=== PATIENT | male | born 2000 ===

== ENCOUNTER 2024-03-13 09:14 | Emergency (ER) | payer SELFPAY ==
[2024-03-13] VITALS (9 sets, daily range): BP systolic 100–144; BP diastolic 50–87; PULSE 96–140; RESP 13–25; TEMP 36.6–38.3; O2SAT 89–99; BMI 26.4
--- NOTE | 2024-03-13 | ECG_ITS ---
Test Reason : dif breathing Blood Pressure : */* mmHG Vent. Rate : 123 BPM Atrial Rate : 123 BPM P-R Int : 130 ms QRS Dur : 84 ms QT Int : 296 ms P-R-T Axes : 75 46 45 degrees QTcB Int : 423 ms Sinus tachycardia Nonspecific T wave abnormality Abnormal ECG No previous ECGs available Referred By: Generic ED Physician Electronically Signed By: JAMES SPRAGUE MD
--- NOTE | ~2024-03-13 | XR_ITS ---
EXAMINATION: XR CHEST CLINICAL INFORMATION: cough, sob COMPARISON: None available. TECHNIQUE: 2 views of the chest were obtained. FINDINGS: No significant abnormality is noted involving the heart, lungs, mediastinum, bony thorax or soft tissues. XR/XR chest 2V IMPRESSION: Unremarkable chest examination. Electronically signed by: Juwan Carter MD 03/13/2024 11:29 AM [facility] [place]
[2024-03-13 11:02] LABS: Basophils Absolute Auto 0.1 X10*3/uL (0.0-0.2); Basophils Percent Auto 0.7 % (0-2); Hematocrit 44.9 % (42.0-52.0); Hemoglobin 15.2 g/dl (14.0-18.0); Imm Gran Abs Auto 0.04 X10*3/uL (0.00-0.03); Imm Gran Pct Auto 0.5 % (0.0-0.4); Lymphocytes Absolute Auto 3.6 X10*3/uL (1.2-4.9); Lymphocytes Percent Auto 40.9 % (20-40); MANUAL DIFF FLAG SCAN; Mean Corpuscular HGB Conc 33.9 g/dl (31.0-36.0); Mean Corpuscular Volume 82.8 fL (80.0-98.0); Mean Platelet Volume 9.5 fL (9.4-12.4); Monocytes Absolute Auto 0.7 X10*3/uL (0.1-1.2); Monocytes Percent Auto 7.9 % (2-11); Neutrophils Absolute Auto 4.4 x10*3/uL (2.0-8.3); Platelet Count 179 X10*3/uL (160-400); Red Blood Count 5.42 X10*6/uL (4.60-5.80); Red Cell Distribution Width 12.7 % (11.0-16.0); SCAN SMEAR FLAG 1; White Blood Count 8.8 X10*3/uL (4.8-10.8)
[2024-03-13 11:05] LABS: Lactic Acid 0.9 mmol/L (0.5-2.0)
[2024-03-13 11:06] LABS: Alanine Aminotransferase 91 U/L (0-40); Albumin Level 4.5 g/dL (3.5-5.0); Alkaline Phosphatase 54 U/L (39-117); Anion Gap 12 (12-20); Aspartate Amino Transferase 46 U/L (5-37); Bilirubin Total 0.5 mg/dL (0.0-1.0); Blood Urea Nitrogen 13 mg/dL (9-16); Calcium 9.6 mg/dL (8.4-10.2); Carbon Dioxide 25 mmol/L (22-29); Chloride 106 mmol/L (96-108); Creatinine Clr Calc Pharmacy 129.8; Estimated Glomerular Filt Rate > 60; Glucose Random 96 mg/dL (60-115); Sodium 139 mmol/L (135-145); Total Protein 8.4 g/dL (6.5-8.0)
--- NOTE | 2024-03-13 11:20 | ED.GENADULT ---
HPI - General Adult General Chief complaint: Upper Respiratory Symptoms Stated complaint: fever nausea cough Time Seen by Provider: 03/13/24 09:53 History of Present Illness HPI narrative: Some patient comes to the ER as he is very short of breath, feels dehydrated has not been able to eat or drink because of nausea and shortness of breath, body aches, fever at home, he has been sick for at least 4 days, but he has been able to go to work but today things got worse especially with his breathing He denies chest pain, he denies diarrhea, no dysuria denies leg swelling denies calf pain denies rash, no abdominal pain no stiff He has a childhood history of asthma but has not had a years, otherwise baseline is healthy Related Data Previous Rx's ?Medication ?Instructions ?Recorded albuterol sulfate 90 mcg/actuation 2 puff inhalation Q4-6H shortness 03/13/24 aerosol inhaler of breath or wheezing #8.5 grams amoxicillin 875 mg-potassium 1 tab PO BID 5 days #10 tabs 03/13/24 clavulanate 125 mg tablet doxycycline hyclate 100 mg tablet 100 mg PO BID 5 days #10 tabs 03/13/24 prednisone 20 mg tablet 60 mg (3 x 20 mg) PO DAILY 5 days 03/13/24 #15 tabs Allergies Allergy/AdvReac Type Severity Reaction Status Date / Time No Known Allergies Allergy Verified 03/13/24 09:46 [facility] Past Medical History Source: nursing notes reviewed Social History Social History Alcohol intake: current Alcohol intake frequency: holidays/special occasions only Smoked in Last 30 Days: No Use of substances other than those prescribed or required for medical reasons: No Advance Directives: No Advance Directives Information Provided: Yes Do you have a plan to hurt others: No Plan Physical Exam ED Vital Signs: Vital Signs - 24 hr 03/13/24 09:42 03/13/24 10:30 03/13/24 10:47 Temperature 100.1 F 100.9 F H Pulse Rate 140 H 110 H Respiratory Rate 22 H 25 H Blood Pressure 144/87 H 120/75 Pulse Oximetry 98 89 L 95 Oxygen Delivery Method Room Air Room Air Nasal Cannula Oxygen Flow Rate 03/13/24 10:50 03/13/24 12:00 03/13/24 12:58 Temperature Pulse Rate 103 H 107 H 114 H Respiratory Rate 18 14 18 Blood Pressure 100/50 L 106/54 L Pulse Oximetry 94 96 Oxygen Delivery Method Nasal Cannula Oxygen Flow Rate 2 03/13/24 13:42 03/13/24 16:25 Temperature Pulse Rate 119 H 100 Respiratory Rate 13 19 Blood Pressure 129/69 Pulse Oximetry 97 Oxygen Delivery Method Room Air Oxygen Flow Rate BMI result Body Mass Index 26.4 Patient was initially febrile tachycardic and with oxygen saturations of 88-90 on room air After neb treatment fluids and antipyretics O2 sat was steady at 97, respiratory rate was 88 and pulse was 100, temp remained at 100.9 after administration of both Motrin and Tylenol General appearance uncomfortable, but able to speak full sentences no respiratory distress The eyes anicteric no pallor no redness no discharge The pharynx is clear without redness swelling or exudate, membranes are moist Neck is supple The chest had some rhonchi, scattered small wheezes and decreased air entry bilaterally Chest wall nontender Heart no murmur Abdomen soft nontender Extremities full range motion x4, no edema no calf tenderness Neuro gait and balance are normal, interaction comprehension and expression are all normal Course Course Course Narrative: Chest x-ray was negative EKG done on arrival showed a sinus tachycardia of a rate of 123, no acute ischemic changes, QRS was 84 QT to 296 CBC was without acute abnormality Chemistries showed AST 46 ALT 91 protein 8.4 Serology was positive for influenza Patient arrived short of breath as his worst complaint, he has had some mild nausea but is not nauseous now and tolerates p.o., he has lots of body aches and feels very fatigued The patient was hydrated given antipyretic and 3 albuterol nebulizer treatments, wheezing was very improved shortness of breath was very improved, pulse was down to 100, oxygen saturation on room air was 97, respiratory rate on departure was 18, speaking full sentences His lung exam there were still scattered wheezes with good air entry, he refused another neb Given the fever and the increased cough with sputum, it might be attributed to reactive airway disease or it could be an early pneumonia not seen on x-ray so he will be treated with antibiotics on discharge, he is out of the window for Tamiflu He was also be treated with an albuterol pump and prednisone for 5 days Patient is discharged improved Medications Administered Discontinued Medications Generic Name Dose Route Start Last Admin Trade Name Freq PRN Reason Stop Dose Admin Acetaminophen 975 mg 03/13/24 14:52 03/13/24 15:05 Acetaminophen 325 Mg Tablet PO 03/13/24 14:53 975 mg ONCE ONE Administration Albuterol Sulfate 2.5 mg/ 5 mg 03/13/24 13:16 03/13/24 13:41 Albuterol Sulfate 2.5 mg INHALE 03/13/24 13:17 5 mg ONCE ONE Administration Albuterol/Ipratropium 3 ml 03/13/24 11:58 03/13/24 12:07 Albuterol/Iprat 2.5/0.5mg 3 Ml Ampul.Neb INHALE 03/13/24 11:59 3 ml ONCE ONE Administration Sodium Chloride 1,000 mls @ 999 mls/hr 03/13/24 15:00 03/13/24 15:05 Ns IVCONT 03/13/24 16:00 999 mls/hr .Q1H1M SHAYLA Administration Ibuprofen 600 mg 03/13/24 12:20 03/13/24 12:57 Ibuprofen 600 Mg Tablet PO 03/13/24 12:21 600 mg ONCE ONE Administration Ondansetron HCl 4 mg 03/13/24 12:24 03/13/24 12:57 Ondansetron Hcl 4 Mg/2 Ml Vial IVPUSH 03/13/24 12:25 Not Given ONCE ONE Oseltamivir Phosphate 75 mg 03/13/24 12:18 03/13/24 12:57 Oseltamivir Phosphate 75 Mg Capsule PO 03/13/24 12:19 75 mg ONCE ONE Administration Prednisone 60 mg 03/13/24 13:17 03/13/24 13:46 Prednisone 20 Mg Tablet PO 03/13/24 13:18 60 mg ONCE ONE Administration Medical Decision Making Lab Data [facility] Lab Attestation statement: I reviewed the patient's lab results. 03/13/24 10:22 03/13/24 10:22 Labs: Lab Results 03/13/24 03/13/24 Range/Units 10:22 10:53 WBC 8.8 (4.8-10.8) X10*3/uL RBC 5.42 (4.60-5.80) X10*6/uL Hgb 15.2 (14.0-18.0) g/dl Hct 44.9 (42.0-52.0) % MCV 82.8 (80.0-98.0) fL MCH 28.0 (27.0-33.0) pg MCHC 33.9 (31.0-36.0) g/dl RDW 12.7 (11.0-16.0) % Plt Count 179 (160-400) X10*3/uL MPV 9.5 (9.4-12.4) fL Immature Gran % (Auto) 0.5 H (0.0-0.4) % Neut % (Auto) 50.0 (45-73) % Lymph % (Auto) 40.9 H (20-40) % Benzie % (Auto) 7.9 (2-11) % Eos % (Auto) 0.0 (0-4) % Baso % (Auto) 0.7 (0-2) % Lymph # (Auto) 3.6 (1.2-4.9) X10*3/uL Benzie # (Auto) 0.7 (0.1-1.2) X10*3/uL Eos # (Auto) 0.0 (0.0-0.4) X10*3/uL Baso # (Auto) 0.1 (0.0-0.2) X10*3/uL Abs Immat Gran (auto) 0.04 H (0.00-0.03) X10*3/uL Absolute Neuts (auto) 4.4 (2.0-8.3) x10*3/uL Absolute Nucleated RBC 0.000 (0.0-0.012) X10*3/uL Nucleated RBC % (auto) 0.0 (0.0-0.2) /100WBC Smear Tech's Comments VERIFIED Sodium 139 (135-145) mmol/L Potassium 4.0 (3.3-5.1) mmol/L Chloride 106 (96-108) mmol/L Carbon Dioxide 25 (22-29) mmol/L Anion Gap 12 (12-20) BUN 13 (9-16) mg/dL Creatinine 1.00 (0.5-1.4) mg/dL Estim Creat Clear Calc 129.8 Estimated GFR > 60 Random Glucose 96 (60-115) mg/dL Lactic Acid 0.9 (0.5-2.0) mmol/L Calcium 9.6 (8.4-10.2) mg/dL Total Bilirubin 0.5 (0.0-1.0) mg/dL AST 46 H (5-37) U/L ALT 91 H (0-40) U/L Alkaline Phosphatase 54 (39-117) U/L Total Protein 8.4 H (6.5-8.0) g/dL Albumin 4.5 (3.5-5.0) g/dL Influenza Type A (PCR) POSITIVE A (Negative) Influenza Type B (PCR) NEGATIVE (Negative) RSV RNA Qual (PCR) NEGATIVE (Negative) SARS-CoV-2 RNA (RT-PCR) NEGATIVE (Negative) Discharge Plan Discharge Clinical Impression: Influenza, Bronchitis Patient Disposition: Home, Self-Care Additional Instructions: We treated her in the ER with fluids, anti fever medicines and asthma medicines which brought significant movement and vital signs and breath sounds Use medications as directed I wrote for some antibiotics as clinically you might be developing a pneumonia, it may be early as it did show on x-ray Antibiotics can sometimes cause diarrhea so get [id number] probiotics which help prevent antibiotic associated diarrhea Return any time for difficulty breathing dehydration any worse condition or any concerns Prescriptions: New doxycycline hyclate 100 mg tablet 100 mg PO BID 5 Days Qty: 10 0RF amoxicillin-pot clavulanate 875-125 mg tablet 1 tab PO BID 5 Days Qty: 10 0RF prednisone 20 mg tablet 60 mg PO DAILY 5 Days Qty: 15 0RF albuterol sulfate 90 mcg/actuation HFA aerosol inhaler 2 puff inhalation Q4-6H Qty: 8.5 0RF Stand Alone Forms: Work/School Release Print Language: Croatian
[2024-03-13 11:28] LABS: SLIDE REVIEW VERIFIED
[2024-03-13 11:54] LABS: Influenza A PCR POSITIVE (Negative); Influenza B PCR NEGATIVE (Negative); Resp Syncy Virus RNA Qual PCR NEGATIVE (Negative); SARS COV2 PCR INHOUSE NEGATIVE (Negative)
[2024-03-13] MEDS: Albuterol/Iprat 2.5/0.5MG 3 ML AMPUL.NEB INHALE (12:07)
[2024-03-13] MEDS: Ibuprofen 600 MG TABLET PO (12:57)
[2024-03-13] MEDS: Oseltamivir Phosphate 75 MG CAPSULE PO (12:57)
[2024-03-13] MEDS: Albuterol Sulfate 2.5 MG, Albuterol Sulfate (0.083%) 2.5 MG 5 MG INHALE (13:41)
[2024-03-13] MEDS: predniSONE 20 MG TABLET 60 MG PO (13:46)
[2024-03-13] MEDS: 0.9 % Sodium Chloride 1,000 ML 999 ML IVCONT (15:05)
[2024-03-13] MEDS: Acetaminophen 325 MG TABLET 975 MG PO (15:05)
[2024-03-13] MEDS: Amoxicillin/Potassium Clav 875 MG TABLET PO (16:56)
[2024-03-13] MEDS: Doxycycline Monohydrate 100 MG CAPSULE PO (16:56)
== END 2024-03-13 17:00 | disposition home or self-care (01) ==
PROVIDERS: Emergency Provider Emergency Medicine
DX: J10.1 Influenza due to other identified influenza virus with other respiratory manifestations (principal); J40 Bronchitis, not specified as acute or chronic; R05.9 Cough, unspecified; R06.02 Shortness of breath; R11.0 Nausea; Z03.818 Encounter for observation for suspected exposure to other biological agents ruled out
CPT/HCPCS: 0241U; 36415; 71046; 80053; 83605; 85025; 87040; 93005; 99284; 99285

== ENCOUNTER → 2024-03-13 10:00 | Outpatient (BNV) | payer SELFPAY | PROVIDERS: Emergency Provider Emergency Medicine; Visit Provider Internal Medicine Cardiovascular Disease | DX: R00.0 Tachycardia, unspecified (principal) | CPT/HCPCS: 93010 ==

== ENCOUNTER → 2024-03-13 11:07 | Outpatient (BNV) | payer SELFPAY | PROVIDERS: Emergency Provider Emergency Medicine; Visit Provider Radiology Diagnostic Radiology | DX: R05.9 Cough, unspecified (principal); R06.02 Shortness of breath | CPT/HCPCS: 71046 ==